=== PATIENT | male | born 1975 | race Caucasian/White ===

== ENCOUNTER 2022-12-16 13:09 | Emergency (ER) | payer BC ==
[2022-12-16] MEDS ORDERED: LIDOCAINE 1% W/EPI 1:100,000 50 ML MDV ONE (15:55)
[2022-12-16] MEDS ORDERED: TETANUS & DIPHTHERIA TOX,ADULT 0.5 ML VIAL ONE (15:58)
--- NOTE | 2022-12-16 16:13 | ER ---
Nurse's Notes [facility] Name: Dereje Gonzalez Age: 47 yrs Sex: Male : 1975 Arrival Date: 12/16/2022 Time: 13:09 Bed 19 Private MD: Diagnosis: Laceration without foreign body of right wrist Presentation: 12/16 14:08 Chief complaint: Patient states: cut his right wrist with some sheet metal from a iw dryer. Coronavirus screen: At this time, the client does not indicate any symptoms associated with coronavirus-19. Ebola Screen: Patient negative for fever greater than or equal to 101.5 degrees Fahrenheit, and additional compatible Ebola Virus Disease symptoms Patient denies exposure to infectious person. Patient denies travel to an Ebola-affected area in the 21 days before illness onset. No symptoms or risks identified at this time. Risk Assessment: Do you want to hurt yourself or someone else? Patient reports no desire to harm self or others. Onset of symptoms was December 16, 2022. 14:08 Method Of Arrival: Ambulatory iw 14:08 Acuity: RSOALVA 4 iw 16:28 Complicating Factors: There are no complicating factors for this patient. ld1 16:28 Initial Sepsis Screen: Does the patient meet any 2 criteria? No. Patient's initial ld1 sepsis screen is negative. Does the patient have a suspected source of infection? No. Patient's initial sepsis screen is negative. Historical: - Allergies: 14:09 No Known Allergies; iw - PMHx: 14:09 None; iw - Immunization history:: Adult Immunizations up to date. - Social history:: Smoking status: Patient denies any tobacco usage or history of. Patient/guardian denies using alcohol. Screenin:58 [facility] ED Fall Risk Assessment (Adult) History of falling in the last 3 months, ld1 including since admission No falls in past 3 months (0 pts). Abuse screen: Denies threats or abuse. Denies injuries from another. Nutritional screening: No deficits noted. Tuberculosis screening: No symptoms or risk factors identified. Assessment: 15:58 General: Appears in no apparent distress. comfortable, Behavior is calm, cooperative, ld1 appropriate for age. Pain: Complains of pain in right wrist Pain does not radiate. Pain currently is 8 out of 10 on a pain scale. Quality of pain is described as throbbing. Neuro: Level of Consciousness is awake, alert, obeys commands, Oriented to person, place, time, situation. Cardiovascular: Capillary refill < 3 seconds Patient's skin is warm and dry. Respiratory: Airway is patent Respiratory effort is even, unlabored. GI: Abdomen is flat, non-distended. : No signs and/or symptoms were reported regarding the genitourinary system. EENT: No signs and/or symptoms were reported regarding the EENT system. Derm: No signs and/or symptoms reported regarding the dermatologic system. Musculoskeletal: No signs and/or symptoms reported regarding the musculoskeletal system. Injury Description: Laceration sustained to palmar aspect of right wrist is clean, is bleeding a small amount. Vital Signs: 14:49 BP 118 / 84; Pulse 51; Resp 16; Temp 97.7; Pulse Ox 99% on R/A; mm9 16:00 BP 124 / 79; Pulse 54; Resp 18; Pulse Ox 99% on R/A; Pain 9/10; ld1 16:00 Pain Scale: Adult ld1 ED Course: 13:15 Patient arrived in ED. am2 14:09 Triage completed. iw 15:04 Rogelio Sanford PA is PHCP. cp 15:04 Rogelio Patricia MD is Attending Physician. cp 15:44 Shraddha Ferguson, [employer] is Primary Nurse. ld1 15:58 Patient has correct armband on for positive identification. Placed in gown. Bed in low ld1 position. Call light in reach. Side rails up X2. Pulse ox on. NIBP on. Door closed. Noise minimized. Warm blanket given. 15:58 Assist provider with laceration repair on palmar aspect of right wrist using sutures. ld1 Set up tray. Performed by Rogelio ERICKSON Dressed with 4X4s, Patient tolerated well. Patient did not have IV access during this emergency room visit. 16:29 Arm band placed on right wrist. ld1 Administered Medications: 15:57 Drug: Tetanus-Diphtheria Toxoid IM Adult 0.5 ml {Cor[employer]ate Travel Manager: [employer]. Exp: ld1 12/17/2023. Lot #: [id number]. } Route: IM; Site: right deltoid; 15:57 Drug: Lidocaine-Epinephrine Infiltration -1%: (1:100,000) 5 ml {Note: Administered by ld1 DRE Santana.} Volume: 20 ml; Route: Infiltration; 15:57 Follow up: Response: (VIS) Vaccine information sheet provided today. Questions and/or ld1 concerns addressed. VIS edition date: Jan 28, 2021.; No adverse reaction Medication: 15:58 Vaccine Information Statement (VIS) provided today. Questions and/or concerns ld1 addressed. VIS edition date: December 16, 2022. Outcome: 16:12 Discharge ordered by . salome 16:28 Discharged to home ambulatory. ld1 16:28 Condition: stable 16:28 Discharge instructions given to patient, Instructed on discharge instructions, follow up and referral plans. medication usage, Demonstrated understanding of instructions, follow-up care, medications, Prescriptions given X 1. 16:29 Patient left the ED. ld1 Signatures: Maria Del Rosario Nelson, RN Rogelio Locke PA PA cp Moreno, Amanda am2 Shraddha Ferguson RN RN ld1 Neda Guardado mm9
--- NOTE | 2022-12-16 16:13 | EDPHYS ---
Physician Documentation [facility] Name: Dereje Gonzalez Age: 47 yrs Sex: Male : 1975 Arrival Date: 12/16/2022 Time: 13:09 Bed 19 Private MD: ED Physician Rogelio Patricia HPI: 12/16 15:15 This 47 yrs old Male presents to ER via Ambulatory with complaints of Laceration To Arm cp - wrist. 15:15 The patient has a laceration related to: sharp edge of metal. cp 15:15 The laceration(s) is(are) located on the volar aspect of right wrist. Onset: The cp symptoms/episode began/occurred just prior to arrival. Associated signs and symptoms: Pertinent positives: tingling distally, Pertinent negatives: heavy bleeding. Historical: - Allergies: 14:09 No Known Allergies; iw - PMHx: 14:09 None; iw - Immunization history:: Adult Immunizations up to date. - Social history:: Smoking status: Patient denies any tobacco usage or history of. Patient/guardian denies using alcohol. ROS: 15:20 Skin: Positive for laceration(s), of the volar side of right wrist. cp 15:20 Constitutional: Negative for body aches, chills, fever. cp 15:20 MS/extremity: Negative for decreased range of motion, deformity. 15:20 Neuro: Negative for altered mental status, headache, numbness, weakness. 15:20 All other systems are negative. Exam: 15:25 Constitutional: The patient appears in no acute distress, alert, awake, well developed, cp well nourished. 15:25 Musculoskeletal/extremity: Extremities: noted in the right wrist: There is no evidence cp of decreased ROM, wound inspected and no signs of tendon or major vascular injury, sensation intact throughout hand, ROM: full active range of motion, in the right wrist. 15:25 Skin: injury, laceration(s), of the volar side of right wrist, that can be described as clean, no foreign body, linear, with mild bleeding. Vital Signs: 14:49 BP 118 / 84; Pulse 51; Resp 16; Temp 97.7; Pulse Ox 99% on R/A; mm9 16:00 BP 124 / 79; Pulse 54; Resp 18; Pulse Ox 99% on R/A; Pain 9/10; ld1 16:00 Pain Scale: Adult ld1 Laceration: 16:10 Wound Repair of 4cm ( 1.6in ) subcutaneous laceration to volar side of right wrist. cp Linear shaped.. Distal neuro/vascular/tendon intact. Anesthesia: Wound infiltrated with 5 mls of 1% lidocaine w/ Epi. Wound prep: Simple cleansing by nurse, Wound irrigation by me. Skin closed with 4 4-0 Prolene using interrupted sutures and sterile technique. Dressed with Bacitracin, 4x4's. Patient tolerated well. MDM: 15:05 Patient medically screened. cp 15:30 Differential diagnosis: superficial laceration, tendon injury, vascular injury. cp 16:12 Data reviewed: vital signs, nurses notes. cp 12/16 15:09 Order name: Dressing - Wound; Complete Time: 15:45 cp 12/16 15:09 Order name: Gloves, Sterile; Complete Time: 15:45 cp 12/16 15:09 Order name: Setup Suture Tray; Complete Time: 15:45 cp 12/16 15:09 Order name: Wound Care: please clean and irrigate wound; Complete Time: 15:58 cp 12/16 16:10 Order name: Wound dressing; Complete Time: 16:28 cp Administered Medications: 15:57 Drug: Tetanus-Diphtheria Toxoid IM Adult 0.5 ml {S[employer] Pipe [employer] Operator: [employer]. Exp: ld1 12/17/2023. Lot #: [id number]. } Route: IM; Site: right deltoid; 15:57 Drug: Lidocaine-Epinephrine Infiltration -1%: (1:100,000) 5 ml {Note: Administered by ld1 PA. Esther} Volume: 20 ml; Route: Infiltration; 15:57 Follow up: Response: (VIS) Vaccine information sheet provided today. Questions and/or ld1 concerns addressed. VIS edition date: Jan 28, 2021.; No adverse reaction Disposition Summary: 12/16/22 16:12 Discharge Ordered Location: Home cp Problem: new cp Symptoms: have improved cp Condition: Stable cp Diagnosis - Laceration without foreign body of right wrist cp Followup: cp - With: Private Physician - When: 7 - 10 days - Reason: Staple/Suture removal Discharge Instructions: - Discharge Summary Sheet cp - Laceration Care, Adult cp - Sutured Wound Care cp Forms: - Medication Reconciliation Form cp - Thank You Letter cp - Antibiotic Education cp - Prescription Opioid Use cp Prescriptions: - Ibuprofen 800 mg Oral Tablet - take 1 tablet by ORAL route every 8 hours As needed take with food; 30 tablet; cp Refills: 0, Product Selection Permitted Signatures: Maria Del Rosario Nelson, RN RN iw Rogelio Sanford PA PA cp Shraddha Ferguson RN RN ld1
[2022-12-16 16:34] VITALS: TEMP 97.7; O2SAT 99
[2022-12-16 16:36] VITALS: BP 124/79
== END 2022-12-16 16:29 | disposition home or self-care (01) ==
LOC: ER 13:09
PROC: 0HQDXZZ Repair Right Lower Arm Skin, External Approach (ICD-10-PCS; principal; 2022-12-16)
DX: S61.511A Laceration without foreign body of right wrist, initial encounter (principal); Z23 Encounter for immunization
CPT/HCPCS: 90471; 90714; 99284